=== PATIENT | female | born 1975 ===

== ENCOUNTER 2017-09-15 13:17 | Emergency (ER) | payer OTHER ==
--- NOTE | 2017-09-15 14:08 | ED PDOC ---
HPI: General Adult Time Seen by Provider: 09/15/17 14:07 Chief Complaint (Nursing): Medical Clearance Chief Complaint (Provider): CO exposure History Per: Patient History/Exam Limitations: no limitations Onset/Duration Of Symptoms: Days (x1) Additional Complaint(s): Devora West is a 41 y/o female who presents to the ER for evaluation of carbon monoxide exposure, discovered today 1 hour prior to arrival. Patient was located on the 2nd floor of the office. She denies having any symptoms. PMD: Provider TBD Past Medical History Reviewed: Historical Data, Nursing Documentation, Vital Signs - Medical History PMH: Denies: Chronic Kidney Disease - Surgical History Surgical History: Tonsillectomy - Family History Family History: States: No Known Family Hx - Home Medications Home Medications: Ambulatory Orders Medication Instructions Recorded Atenolol [Tenormin] 25 mg PO DAILY 09/27/16 Escitalopram [Lexapro] 10 mg PO DAILY 09/27/16 Levocetirizine Dihydrochloride 5 mg PO DAILY 09/27/16 [Xyzal] Omeprazole Magnesium [Prilosec] 20 mg PO DAILY 09/27/16 - Allergies Allergies/Adverse Reactions: Allergies Allergy/AdvReac Type Severity Reaction Status Date / Time No Known Allergies Allergy Verified 09/27/16 08:01 Review of Systems ROS Statement: Except As Marked, All Systems Reviewed And Found Negative Respiratory: Negative for: Shortness of Breath Gastrointestinal: Negative for: Nausea Physical Exam - Reviewed Nursing Documentation Reviewed: Yes Vital Signs Reviewed: Yes - Physical Exam Appears: Positive for: Well, Non-toxic, No Acute Distress Head Exam: Positive for: ATRAUMATIC, NORMAL INSPECTION, NORMOCEPHALIC Skin: Positive for: Normal Color, Warm, DRY Eye Exam: Positive for: EOMI, Normal appearance, PERRL ENT: Positive for: Normal ENT Inspection Neck: Positive for: Normal, Painless ROM Cardiovascular/Chest: Positive for: Regular Rate, Rhythm Respiratory: Positive for: CNT, Normal Breath Sounds Gastrointestinal/Abdominal: Positive for: Normal Exam, Bowel Sounds, Soft Back: Positive for: Normal Inspection Extremity: Positive for: Normal ROM Neurologic/Psych: Positive for: Alert, Oriented Medical Decision Making Medical Decision Making: Patient denies any symptoms. Noted CO at 1.5 here. Does not want any VBG testing at this time. Patient is medically stable for discharge. Counseled regarding CO exposure and advised to return if any changes develop. Scribe Attestation: Documented by Nai Nettlse, acting as a scribe for Brian Sung PA-C Provider Scribe Attestation: All medical record entries made by the Scribe were at my direction and personally dictated by me. I have reviewed the chart and agree that the record accurately reflects my personal performance of the history, physical exam, medical decision making, and the department course for this patient. I have also personally directed, reviewed, and agree with the discharge instructions and disposition. Disposition - Clinical Impression Clinical Impression: Carbon monoxide exposure - Patient ED Disposition Is Patient to be Admitted: No Counseled Patient/Family Regarding: Studies Performed, Diagnosis, Need For Followup - Disposition Disposition: Routine/Home Disposition Time: 14:08 Condition: FAIR Instructions: Carbon Monoxide Poisoning (ED) Forms: Proton Therapy (Sinhala)
[2017-09-15 14:33] VITALS: BP 105/71; PULSE 69; RESP 18; TEMP 97.6; O2SAT 99
== END 2017-09-15 14:34 | disposition home or self-care (01) ==
LOC: H.ER 13:17
DX: T58.91XA Toxic effect of carbon monoxide from unspecified source, accidental (unintentional), initial encounter (principal); Y99.0 Civilian activity done for income or pay